=== PATIENT | female | born 1995 | race Caucasian/White ===

== ENCOUNTER 2020-08-13 16:08 | Emergency (ER) | payer OTHER, SELFPAY ==
[2020-08-13 16:13] VITALS: BP 127/75; PULSE 80; RESP 18; TEMP 36.6; O2SAT 100
[2020-08-13 19:40] VITALS: BP 132/72; PULSE 85; RESP 18; TEMP 36.4; O2SAT 100
--- NOTE | 2020-08-13 19:41 | PC.NURSE ---
Patient presents to the intake desk with reports of bleeding noted after using the bathroom. States she is 12 wks and noted blood in toilet and with wiping. She is reporting increase in cramping and pain at this time. Patient back to triage for reassessment at this time.
--- NOTE | 2020-08-13 20:02 | ED.GENADULT ---
HPI - General Adult General Chief complaint: Unspecified Stated complaint: 12 weeks preg, constipated Time Seen by Provider: 08/13/20 19:49 History of Present Illness HPI narrative: Patient is a 24-year-old female who is 12 weeks that presents ER with constipation and bleeding. Patient reports she has not had a bowel movement since 08/09/2018. Reports has been straining to. But nothing has been coming out but she has been having bleeding from her rectum. She just went to the bathroom and wipe from front to back after urinating and noticed some blood on the paper as well. She is unsure if it is coming from her vagina and she is having some lower pelvic cramping now. She is unsure what her blood type is. She is a G1, P0. She is in town from [place] and does not have an OB in the area. Patient denies dysuria/hematuria/urinary frequency/urgency. No new vaginal discharge. Patient is unsure if she has a hemorrhoid around her rectum. She has no tenderness in the area. Patient reports increasing her fiber and taking some stool softeners without results. Related Data Home Medications Medication Instructions Recorded Confirmed ondansetron HCl [Zofran] 4 mg PO Q6H PRN 08/13/20 Allergies Allergy/AdvReac Type Severity Reaction Status Date / Time azithromycin Allergy Unknown Unknown Verified 08/13/20 16:17 Review of Systems Review of Systems: All systems reviewed & are unremarkable except as noted in HPI and below Gastrointestinal: Gastrointestinal: Reports constipation and Reports GI cramping Genitourinary: Genitourinary: Denies dysuria, Denies urinary urgency and Denies vaginal discharge PMFSH Past Medical History Medical History (Updated 08/13/20 @ 23:38 by Clint Munoz MD) ADD (attention deficit disorder) Meningitis Surgical History Surgical History (Updated 08/13/20 @ 20:05 by Clint Munoz MD) H/O inguinal hernia repair Social History Social History Smoking status: Never smoker Alcohol intake: never Exam Narrative: Exam Narrative: GENERAL: Well-appearing, well-nourished, and in no acute distress. HEAD: Normocephalic, atraumatic. CHEST: Clear to auscultation. No respiratory distress. HEART: Regular rate and rhythm. Normal peripheral pulses. ABDOMEN: Soft, nontender, nondistended. Rectum without fissure or external hemorrhoids. PALAK deferred. : Normal external female genitalia. Small amount of mucus-like discharge near the cervix. Cervix friable but nontender and bleeding initiated by speculum striking the cervix. There is no evidence of prior vaginal bleeding or active bleeding from cervical os. EXTREMITIES: Normal range of motion. No edema. SKIN: Warm, dry, no rash. NEURO: Alert and oriented x3. PSYCH: Normal mood and affect. Course Course Emergency Course: Bleeding felt to be related to constipation and straining. No external hemorrhoids. Vaginal exam with friable cervix and some discharge. Patient denies potential risk for STI. Cultures sent. No apparent bleeding in the vagina outside of when speculum was inserted and irritated the cervix. Blood type is AB+. I do not feel patient is having threatened miscarriage and that the blood was from patient's constipation. Magnesium citrate here, [employer]ira[employer] for home. Vital Signs Vital signs: Vital Signs Temperature 97.8 F 08/13/20 16:13 Pulse Rate 80 08/13/20 16:13 Respiratory Rate 18 08/13/20 16:13 Blood Pressure 127/75 08/13/20 16:13 Pulse Oximetry 100 08/13/20 16:13 Temperature 97.5 F L 08/13/20 19:40 Pulse Rate 81 08/13/20 23:50 Respiratory Rate 18 08/13/20 23:50 Blood Pressure 129/74 08/13/20 23:50 Pulse Oximetry 100 08/13/20 23:50 Medical Decision Making Vital Signs Vital Signs: Vital Signs Temperature 97.8 F 08/13/20 16:13 Pulse Rate 80 08/13/20 16:13 Respiratory Rate 18 08/13/20 16:13 Blood Pressure 127/75 08/13/20 16:13 Pulse Oximetry 100 08/13/20 16:13 Temper
[2020-08-13] MEDS: SODIUM CHLORIDE 0.9% IV 1,000 ML 999 ML IV CONT (20:24)
--- NOTE | 2020-08-13 22:30 | PC.NURSE ---
Pelvic exam done by Dr Munoz with this RN at bedside-patient tolerated well
[2020-08-13] MEDS: MAGNESIUM CITRATE 300 ML BTL PO (23:15)
[2020-08-13 23:50] VITALS: BP 129/74; PULSE 81; RESP 18; O2SAT 100
== END 2020-08-13 23:50 | disposition home or self-care (01) ==
PROVIDERS: Emergency Provider Emergency Medicine
DX: O99.611 Diseases of the digestive system complicating pregnancy, first trimester (principal); K59.00 Constipation, unspecified; Z3A.12 12 weeks gestation of pregnancy
CPT/HCPCS: 36415; 85461; 87070; 87491; 87591; 87808; 96360; 99284; A9270; J7030